=== PATIENT | male | born 1965 | race Caucasian/White ===

== ENCOUNTER 2024-08-01 06:57 | Emergency (ER) | payer OTHER, SELFPAY ==
[2024-08-01 07:07] VITALS: BP 136/89
--- NOTE | 2024-08-01 07:25 | ED.GENMED ---
History of Present Illness
General
Chief Complaint: Rectal Bleeding
Source: patient
Exam Limitations: none
Time Seen by Provider: 08/01/24 07:16
Nursing documentation reviewed up to this point in time: agreed with
History of Present Illness
History of Present Illness:
59-year-old male with history as noted presents to the ER for evaluation of flank pain, blood in his stools. Patient reports that for the past 2 weeks or so he has had mild off-and-on right flank pain. He says that last night his symptoms were
more persistent and significant with a sharp pain in the right flank radiating towards the right lower quadrant. He took some ibuprofen which seemed to improve his symptoms and was able to get the bed. This morning he woke up and had a bowel
movement and noticed that he had some bright red blood mixed with the stool in the toilet. He says he has noted occasional blood on the toilet tissue when wiping. He says with rectal bleeding and flank pain he decided he should come to the ER to
be evaluated. He has not had any dysuria, hematuria or change in urinary frequency. He has not had any nausea or vomiting. He denies any other complaints. He says it has been 10+ years since his last colonoscopy at which point they found a polyp
but no other significant abnormalities.
Past History
Past History
ED Past Medical History: None
ED Past Surgical History: None
Social History
Tobacco: Non-smoker
Review of Systems
Review of Systems
All Other Systems: ROS reviewed and negative except as documented in HPI and ROS
Constitutional: Denies fever
Respiratory: Denies trouble breathing
Cardiac: Denies chest pain
ABD/GI: Reports bloody stools; Denies abdominal pain, nausea, vomiting or diarrhea
: Reports flank pain; Denies dysuria or bleeding
Musculoskeletal: Denies neck pain or back pain
Neurological: Denies dizzy or headache
Phy Exam
Physical Exam
Physical Exam:
General: Awake, alert, oriented x3; no acute distress
Head: Normocephalic, atraumatic
Eyes: Conjunctiva normal, sclera anicteric
Throat: Airway intact, handling secretions
Neck: Trachea midline
Lungs: Clear to auscultation bilaterally, no wheezing, rales, rhonchi
Heart: Regular rate and rhythm, no murmurs, gallops, or rubs
Abd: Soft, non distended, nontender
Rectal: Patient has small external hemorrhoid, no internal masses, brown stool no bright red blood noted
Back: No CVA tenderness, no reproducible tenderness in the thoracic or lumbar spine or in the paraspinal region
Neuro: No gross deficits
Skin: no rash in area of concern
Extremities: Warm and well-perfused
Scores
Heart Failure Risk
Heart Failure Risk Score: Not Applicable
Heart Score for Chest Pain Patients
STEMI patient?: Not applicable
Withdrawal Assessment of Alcohol
Withdrawal Assessment Completed?: Not applicable
Course
Orders/Labs/Results
Orders:
Orders
08/01/24 07:25
CT Abd/pelvis W Iv Cont Urgent
Comment:
Reason For Exam: right flank pain
08/01/24 07:36
Complete Blood Count/With Diff Urgent
Comprehensive Metabolic Panel Urgent
08/01/24 08:47
Urinalysis Reflex To Culture Urgent
Date Specimen was Collected: 08/01/24
Time Specimen was Collected: 08:45
Abnormal Lab Results
08/01/24
07:36
MPV 10.5 H fL
(7.4-10.4)
Monocytes % 9.9 H %
(1.7-9.3)
Chloride 109 H mmol/L
(98-107)
08/01/24 07:36
08/01/24 07:36
Vital Signs
Initial and Last Documented VS:
Initial Vital Signs
Temp Pulse Resp BP Pulse Ox
36.9 C 77 18 136/89 98
08/01/24 07:07 08/01/24 07:07 08/01/24 07:07 08/01/24 07:07 08/01/24 07:07
Last Documented Vital Signs
Temp Pulse Resp BP Pulse Ox
36.9 C 77 18 136/89 98
08/01/24 07:07 08/01/24 07:07 08/01/24 07:07 08/01/24 07:07 08/01/24 07:27
MDM/Problems Addressed
Differential Diagnosis Includes:
Nephrolithiasis, appendicitis, cholelithiasis/cholecystitis, muscular strain
MDM/Problems Addressed:
59-year-old male presents for evaluation of right flank pain off and on for 2 weeks more persistent since last night. Also noticed some bright red blood mixed with stool today. Vitals and exam as above. Suspect rectal bleeding was hemorrhoidal.
Will plan to check basic labs, urinalysis, CT. Will monitor closely reassess after the above.
Labs reviewed: CBC shows no clinically significant abnormalities�notably robust hemoglobin of 15.1. CMP no clinically significant abnormalities. CT abdomen pelvis reviewed: No acute abnormalities, normal appendix. He does have a hepatic dome
lesion likely hemangioma but will need outpatient follow-up, also has pulmonary nodule noted on CT incidentally. He was given a report of CT to follow-up with primary doctor. Suspect likely flank pain is musculoskeletal. I think his rectal
bleeding is hemorrhoidal. I think he is stable for discharge and can follow-up with his primary care physician. He feels very comfortable with this plan. We spoke about return precautions and all questions were answered.
*Pulse Oximetry
SaO2: 98
Oxygen Mode of Delivery: Room air
Patient hypoxic: no (98%)
*Critical Care Note
Total Time (30-74mins, 75-104mins- exclusive of procedures): Not Applicable
Data Reviewed
Source: patient
ED Attending Note
-
Portions of this chart may have been created with voice recognition software.� Occasional wrong word or��sound alike� substitutions may have occurred due to the inherent limitations of voice recognition software.
Discharge Plan
Departure
Patient Disposition: Home (Routine Discharge)
Date of Disposition: 08/01/24
Time of Disposition: 08:53
Patient with high blood pressure during this ER visit?: No
Discharge Problem:
Right flank pain, Hemorrhoid
Instructions: Hemorrhoids (DC), Flank pain - ED discharge instructions
Prescriptions:
No Action
No Current Medications
0
Referrals:
Dayron Boston MD [Family Provider, Family Practice] - Follow up in 5-7 days
Activity Restrictions/Additional Instructions:
You had multiple incidental findings on your CT that you should follow-up on with your primary doctor.
Thank you for visiting the Emergency Department at [facility].
1. Please schedule a follow up appointment as directed. Call first thing tomorrow morning to make an appointment.
2. If indicated, please take your medications as instructed and indicated on discharge paperwork.
3. If any of your symptoms do not improve, or persist, or become more severe within 6-12 hours, please return to the emergency department for further care.
4. Please return to the emergency department if you develop a headache, neck pain/stiffness, fever greater than 100.4F, chest pain, shortness of breath, persistent nausea, vomiting, slurred speech, difficulty walking, numbness/tingling, weakness,
signs of infection or any other symptoms that are worrisome to you.
Please call [phone] if you have any questions.
Interventions
Interventions:
*Risk Screen - Suicide Last Done: 08/01/24 07:07
*General Assessment Last Done: 08/01/24 07:27
*ED- Fall Risk Assessment Last Done: 08/01/24 07:27
*ED COVID-19 Vaccine History Last Done: 08/01/24 07:27
Discharge Date and Time
Print Language: IRISH
[2024-08-01 07:27] VITALS: BMI 26.2
[2024-08-01 07:30] VITALS: BP 127/90
[2024-08-01 07:46] LABS: % Basophils 0.6 % (0-2); % Eosinophils 2.7 % (0-6); % Immature Granulocytes 0.2 % (0-0.5); % Lymphocytes 22.9 % (20.5-51.1); % Monocytes 9.9 % (1.7-9.3); % Neutrophils 63.7 % (42.2-75.2); Absolute Eosinophils 0.1 10^3/uL (0-0.7); Absolute Lymphocytes 1.2 10^3/uL (1.2-3.4); Absolute Monocytes 0.5 10^3/uL (0.1-0.6); Absolute Neutrophils 3.3 10^3/uL (1.4-6.5); Hematocrit 42.7 % (39.0-52.0); Hemoglobin 15.1 g/dL (13.0-18.0); Mean Corp Hgb Conc. 35.4 g/dL (33.0-37.0); Mean Corpuscular Hgb 30.9 pg (27.0-31.0); Mean Corpuscular Volume 87.5 fL (80.0-94.0); Mean Platelet Volume 10.5 fL (7.4-10.4); Nucleated Red Blood Cells % 0 % (-); Platelet Count 143 10^3/uL (130-400); Red Blood Cell Count 4.88 10^6/uL (4.70-6.10); Red Cell Dist. Width 12.7 % (11.5-14.5); White Blood Cell Count 5.2 10^3/uL (4.8-10.8)
[2024-08-01 08:00] VITALS: BP 126/78
[2024-08-01 08:09] LABS: ALT (SGPT) 27 U/L (0-50); AST (SGOT) 29 U/L (17-59); Albumin 4.4 g/dl (3.5-5.0); Alkaline Phosphatase 58 U/L (38-126); Blood Urea Nitrogen 18 mg/dl (9-20); Calcium 9.8 mg/dl (8.4-10.2); Carbon Dioxide 25 mmol/L (22-30); Chloride 109 mmol/L (98-107); Estimated Creatinine Clearance 88 ml/min; Glucose 97 mg/dl (70-99); Potassium 4.1 mmol/L (3.5-5.1); Sodium 141 mmol/L (135-145); Total Bilirubin 0.8 mg/dl (0.2-1.3); eGFR > 60.00
[2024-08-01 08:49] VITALS: BP 137/96
[2024-08-01 09:52] LABS: Urine Albumin Negative (Neg - Trace); Urine Bilirubin Negative (Negative); Urine Character Clear (Clear); Urine Color Yellow; Urine Glucose Negative (Negative); Urine Ketone Negative (Negative); Urine Leukocyte Negative (Negative); Urine Nitrite Negative (Negative); Urine Occult Blood Negative (Negative); Urine Specific Gravity 1.005 (<1.030); Urine Urobilinogen Negative (Neg - 1+)
== END 2024-08-01 09:27 | disposition home or self-care (01) ==
LOC: EMR 06:57
PROVIDERS: EMERGENCY PHYSICIAN Emergency Medicine; FAMILY PHYSICIAN Family Medicine
DX: K64.9 Unspecified hemorrhoids (principal); R10.9 Unspecified abdominal pain; Z86.0100 Personal history of colon polyps, unspecified
CPT/HCPCS: 99284; 74177; 80053; 81003; 85025; Q9967

== ENCOUNTER → 2024-11-22 17:32 | Outpatient (REF) | payer OTHER, SELFPAY | LOC: MRI 3T 17:32 | PROVIDERS: ATTENDING PHYSICIAN Nurse Practitioner Family; FAMILY PHYSICIAN Family Medicine | DX: K76.9 Liver disease, unspecified (principal) | CPT/HCPCS: 74183; A9575 ==